=== PATIENT | male | born 1940 | race Caucasian/White ===

== ENCOUNTER → 2017-01-22 | Outpatient (CLI) | payer MEDICARE ==
--- NOTE | 2017-01-22 11:53 | US ---
EXAMINATION TYPE: US thyroid st tissue head/neck DATE OF EXAM: 01/22/2017 10:30 AM COMPARISON: NONE CLINICAL HISTORY: Goiter E04.9. GLAND SIZE: Right Lobe: 6.9 x 3.5 x 3.5 cm Overall Parenchyma: heterogenous Left Lobe: 5.1 x 2.8 x 2.3 cm Overall Parenchyma: heterogeneous Isthmus Thickness: 0.8 cm NODULES ISTHMUS: # of nodules measured in the isthmus: 0 TECHNOLOGIST IMPRESSION: Bilateral neck scanned, no abnormal lymphadenopathy noted. Heterogeneous gl and. Thyroid gland is enlarged in size and markedly heterogeneous in appearance. IMPRESSION: Heterogeneous enlarged thyroid is consistent with diffuse goiter. No discrete focal worrisome nodules clearly seen.
== END | disposition home or self-care (01) ==
LOC: RADUSWWP 10:09
PROVIDERS: ATTEND Family Medicine
DX: E04.9 Nontoxic goiter, unspecified (principal)
CPT/HCPCS: 76536

== ENCOUNTER 2017-04-06 07:50 | Day surgery (SDC) | payer MEDICARE ==
[2017-04-05 08:56] VITALS: BMI 29.5
[~2017-04-06 07:50] MED LIST: LACTATED RINGERS 1,000 ML IV SCH
[2017-04-06 08:26] VITALS: TEMP 97.3
[2017-04-06] MEDS ORDERED: LIDOCAINE 1% 20 ML VIAL (10MG/ML) FOR IV START INTRADERMA ONE (08:30)
[2017-04-06] MEDS ORDERED: PROPOFOL 10 MG/ML 20 ML VIAL IV ONE (09:03)
[2017-04-06] MEDS ORDERED: LIDOCAINE 1% INJ 10MG/ML (20 ML MDV) ONE (09:03)
[2017-04-06 09:11] LABS: Glucose,Whole Blood 123 mg/dL (75-99)
--- NOTE | 2017-04-06 09:32 | P.PCN ---
Date of Procedure: 04/06/17 Preoperative Diagnosis: Postoperative Diagnosis: Procedure(s) Performed: BRIEF HISTORY: Patient is a 76-year-old pleasant white male, scheduled for an elective colonoscopy as a part of screening for colorectal neoplasia. PROCEDURE PERFORMED: Colonoscopy With snare polypectomy. PREOPERATIVE DIAGNOSIS: Screening for colon cancer. IV sedation per Anesthesia. PROCEDURE: After informed consent was obtained, the patient, was brought into the endoscopy unit. IV sedation was administered by Anesthesia under continuous monitoring. Digital rectal examination was normal. Initially the Olympus CF- 160 flexible video colonoscope was then inserted in the rectum, gradually advanced into the cecum without any difficulty. Careful examination was performed as the scope was gradually being withdrawn. Ileocecal valve and the appendiceal orifice were visualized and appeared normal. Prep was excellent. Mucosa of the cecum, appeared normal. In the ascending colon there were some 1 cm polyp 2 removed by snare polypectomy. In the transverse colon there was a 1 cm polyp removed by snare polypectomy. In the descending colon there was a 5 mm polyp removed by snare polypectomy. In the sigmoid colon there were 2 polyps measuring 1 cm and 2 cm with thick peduncle status post snare polypectomy. Scattered sigmoid diverticulosis seen. The rest of the ascending colon, transverse colon, descending colon, sigmoid colon, and rectum appeared normal. Retroflexion was performed in the rectum and no lesions were seen. The patient tolerated the procedure well. IMPRESSION: 1 cm 2 ascending colon polyp status post polypectomy 1 cm transverse colon polyp status post polypectomy 5 mm descending colon polyp status post polypectomy 1 cm and 2 cm thick pedunculated polyp in the sigmoid colon status post snare polypectomy Scattered sigmoid diverticulosis RECOMMENDATIONS: Findings of this examination were discussed with the patient as well as his family. He was advised to follow with the biopsy results. If the biopsy shows a tubular adenoma he can have a repeat colonoscopy in 3 years. Implants: Indications for Procedure: Operative Findings: Description of Procedure:
[2017-04-06 09:49] LABS: Glucose,Whole Blood 109 mg/dL (75-99)
[2017-04-06 09:51] VITALS: RESP 20
[2017-04-06 10:00] VITALS: BP 147/77; PULSE 88
== END 2017-04-06 10:18 | disposition home or self-care (01) ==
LOC: ORWHC2ENDO 07:50
PROVIDERS: ATTEND Internal Medicine Gastroenterology
DX: Z12.11 Encounter for screening for malignant neoplasm of colon (principal); D12.2 Benign neoplasm of ascending colon; D12.5 Benign neoplasm of sigmoid colon; D12.3 Benign neoplasm of transverse colon; K57.30 Diverticulosis of large intestine without perforation or abscess without bleeding; I10 Essential (primary) hypertension; E78.5 Hyperlipidemia, unspecified; J44.9 Chronic obstructive pulmonary disease, unspecified; E11.9 Type 2 diabetes mellitus without complications; D64.9 Anemia, unspecified; Z88.0 Allergy status to penicillin; Z79.84 Long term (current) use of oral hypoglycemic drugs; Z79.82 Long term (current) use of aspirin; Z79.51 Long term (current) use of inhaled steroids; Z79.899 Other long term (current) drug therapy
CPT/HCPCS: 88305; 45385; J2001; J2704

== ENCOUNTER → 2018-01-28 | Outpatient (CLI) | payer MEDICARE ==
[2018-01-28 09:27] LABS: HCT 39.5 % (39.0-53.0); HGB 12.3 gm/dL (13.0-17.5); Hypochromasia Slight; MCH 24.8 pg (25.0-35.0); MCV 79.9 fL (80.0-100.0); Mean Platelet Volume 7.1; Platelet Count 293 k/uL (150-450); RBC 4.95 m/uL (4.30-5.90); RDW 14.7 % (11.5-15.5); WBC 5.2 k/uL (3.8-10.6)
--- NOTE | 2018-01-28 09:53 | US ---
EXAMINATION TYPE: US thyroid st tissue head/neck DATE OF EXAM: 01/28/2018 COMPARISON: US January 22, 2017 CLINICAL HISTORY: E04.9 Nontoxic goiter,unspecified ; no previous nodules measured. GLAND SIZE: Right Lobe: 6.9 x 3.1 x 3.6 cm Overall Parenchyma: heterogenous Left Lobe: 5.5 x 3.0 x 3.0 cm Overall Parenchyma: heterogeneous Isthmus Thickness: 1.8 cm NODULES ISTHMUS: # of nodules measured in the isthmus: 0 Bilateral neck scanned: 1.3 x 0.8 x 0.5cm lymph node is imaged superior to right thyroid. There is markedly heterogeneous and enlarged thyroid redemonstrated. Technologist walker bilateral poo rly defined nodules not significantly changed in appearance from prior exam. Technologist also walker benign-appearing subcentimeter lymph node in the right neck on image [id number]. IMPRESSION: No significant change from prior. Findings consistent with thyroid goiter redemonstrated.
[2018-01-28 10:36] LABS: ALT 105 U/L (21-72); AST 76 U/L (17-59); Albumin 3.5 g/dL (3.5-5.0); Alkaline Phosphatase 165 U/L (38-126); Anion Gap 11 mmol/L; Blood Urea Nitrogen 17 mg/dL (9-20); Calcium 9.3 mg/dL (8.4-10.2); Carbon Dioxide 27 mmol/L (22-30); Chloride 106 mmol/L (98-107); Cholesterol 141 mg/dL (<200); Glucose 143 mg/dL (74-99); HDL Cholesterol 39 mg/dL (40-60); Potassium 4.4 mmol/L (3.5-5.1); Sodium 144 mmol/L (137-145); Total Bilirubin 0.4 mg/dL (0.2-1.3); Total Protein 6.9 g/dL (6.3-8.2); Triglycerides 130 mg/dL (<150)
[2018-01-28 10:37] LABS: LDL Cholesterol,Calculated 76 mg/dL (0-99)
[2018-01-28 10:51] LABS: T4, Free (Free Thyroxine) 1.26 ng/dL (0.78-2.19)
[2018-01-28 11:05] LABS: Prostate Specific Antigen 2.86 ng/mL (0.00-4.00)
[2018-01-28 16:09] LABS: Iron Saturation 9.07 (15.00-50.00)
[2018-01-28 18:31] LABS: Hemoglobin A1C 6.7 % (4.0-6.0)
== END | disposition home or self-care (01) ==
LOC: RADUSWWP 08:10
PROVIDERS: ATTEND Family Medicine
DX: E04.9 Nontoxic goiter, unspecified (principal); Z00.01 Encounter for general adult medical examination with abnormal findings; E11.9 Type 2 diabetes mellitus without complications; D50.9 Iron deficiency anemia, unspecified
CPT/HCPCS: 36415; 76536; 80053; 80061; 82043; 82570; 82728; 83036; 83540; 83550; 84153; 84439; 84443; 85027